=== PATIENT | male | born 1980 | race Caucasian/White ===

== ENCOUNTER 2017-04-28 20:48 | Emergency (ER) | payer OTHER ==
[~2017-04-28] VITALS: Ht 182.9 cm; Wt 129.9 kg
[~2017-04-28 20:48] MED LIST: ACET325T51 PO; ASPI-973 PO; CYCL10TA9 PO; HYDR-4003 PO; METO-369 PO; TAMS0.4C98 PO
[2017-04-28 20:54] VITALS: BP 180/98; PULSE 107; RESP 18; O2SAT 96
--- NOTE | 2017-04-28 23:35 | ED.REPORT ---
HPI-Abd Pain M Under 40 Date of Service Apr 28, 2017 ED Provider: Dr. Cronin Pt is a 36 year old male with a hx of HTN presenting to the ED complaining of midline abdominal pain which he has had for 4 years. Associated symptoms include urinary frequency, recent weight loss. He denies decreased appetite, constipation, bloody or tarry stool, dysuria, cough. He states that he is now homeless and sleeping in his car, and so he was unable to lay down which exacerbated the pain. He had an endoscopy and colonoscopy 1 year ago which showed IBS. Nursing Notes Stated Complaint: ABDOMINAL PAIN Chief Complaint: Male Abdominal Pain Nursing Notes Reviewed: Yes Scheduled Aspirin (Aspirin) 81 Mg Tablet 81 MG PO DAILY Metoprolol Succinate ER (Metoprolol Succinate ER) 50 Mg Tab.er.24h 150 MG PO BID Psyllium Husk (Psyllium) 0.4 Gram Capsule 1.6 GM PO DAILY Tamsulosin (Flomax) 0.4 Mg Capsule 0.4 MG PO BID Scheduled PRN Acetaminophen (Acetaminophen) 325 Mg Tablet 325 MG PO Q4H PRN PRN For Fever Cyclobenzaprine (Cyclobenzaprine) 10 Mg Tablet 10 MG PO TID PRN PRN Spasm Hydrocodone-Acetaminophen 5-325 mg (Hydrocodone-Acetaminophen 5-325 mg) 1 Each Tablet 1 TABLET PO Q4H PRN PRN For Pain General Time Seen by MD: 23:35 Chief Complaint Abdominal pain Hx Obtained From: Patient Arrived By: Walk-in Sudden in Onset?: No Onset Occurred: More than a week ago... (4 years ago) Symptom Duration: Since onset Location: : Diffuse Quality: Painful Severity: Current: Severe Severity: Maximum: Severe Recent Healthcare: No recent doctor visit, No recent hospitalization Similar Sx Previous: Yes Past Medical History Past Medical History Celiac disease episodic a fib HTN IBS Smoking History Current Every Day Smoker Social History Alcohol Use: Denies alcohol use Drug Use: Denies drug use Other Social History: Homeless Occupation lives alone. Ambulatory Status Independent Review of Systems Review of Systems Note: Denies decreased appetite Respiratory: Denies: Non-productive cough GI: Reports: Abdominal pain, Denies: Bloody/tarry stool, Constipation Male: Reports Urinary frequency, Denies Dysuria Complete sys rev & neg: except as marked. Endocrine: Reports: Weight loss Physical Exam Initial Vital Signs Vital Signs (First) Date Time Temp Pulse Resp B/P Pulse Ox O2 Delivery O2 Flow Rate FiO2 04/28/17 20:54 36.2 107 18 180/98 96 Room Air Initial VS: Reviewed Head / Eyes: Atraumatic, Normocephalic, PERRL ENT: Mucous membranes moist, Conjunctiva normal, No scleral icterus Extremities: Vascular intact, Neuro intact, No swelling, No tenderness Skin: Warm, Dry, No cyanosis Neurologic: Alert, Oriented, Nonfocal Psychiatric: Mood/affect normal, Behavior normal, Normal thought content General/Constitutional: Awake, Alert, No acute distress, Well appearing Respiratory / Chest: Breath sounds NL, Breath sounds = bilat, No respiratory distress, No rales, No rhonchi, No wheezing, No stridor Cardiovascular: Heart rate NL, Regular rhythm, Heart sounds NL, Peripheral circulation NL Abdomen: Atraumatic Mildly diffusely tender to palpation, obese Interpretation & Diagnostics Lab Results Interpretation Result Diagram: 04/29/17 0022 04/29/17 0022 Test 04/29/17 00:22 04/29/17 00:23 04/29/17 00:31 White Blood Count 8.5th/mm3 (3.8-10.1) Red Blood Count 5.12mil/mm3 (4.40-5.80) Hemoglobin 15.5g/dL (13.8-17.2) Hematocrit 44.6% (41.0-50.0) Mean Corpuscular Volume 87.1fL (81-100) Mean Corpuscular Hemoglobin 30.3pg (27.0-35.0) Mean Corpuscular Hemoglobin Concent 34.8% (32.0-37.0) Red Cell Distribution Width 14.0% (12.3-15.4) Platelet Count 215bil/L (150-400) Neutrophils (%) (Auto) 53.8% (40-74) Lymphocytes (%) (Auto) 30.8% (14-46) Monocytes (%) (Auto) 12.8% (4-12) Eosinophils (%) (Auto) 1.6% (0-5) Basophils (%) (Auto) 0.4% (0-3) Sodium Level 137mEq/L (134-144) Potassium Level 4.2mEq/L (3.5-5.2) Chloride Level 97mEq/L (97-108) Carbon Dioxide Level 23mmol/L (18-29) Blood Urea Nitrogen 18mg/dL (6-20) Creatinine 1.15mg/dL (0.76-1.27) Estimat Glomerular Filtration Rate 76mL/min (>59) Glucose Level 101mg/dL (60-99) Calcium Level 9.7mg/dL (8.5-10.1) Magnesium Level 2.1mg/dL (1.6-2.6) Total Bilirubin 0.4mg/dL (0.0-1.2) Aspartate Amino Transf (AST/SGOT) 22U/L (0-50) Alanine Aminotransferase (ALT/SGPT) 41U/L (0-44) Alkaline Phosphatase 93U/L (25-150) Total Protein 7.9g/dL (6.4-8.4) Albumin 4.6g/dL (3.4-5.0) Lipase 23U/L (13-60) Hold [place] Top Tube Received (Received) Urine Color Yellow (YELLOW) Urine Appearance Clear (CLEAR,HAZY) Urine pH 6.0 (5.0-8.0) Urine Specific [place] 1.025 (1.003-1.035) Urine Protein Negativemg/dL (NEG,TRACE) Urine Glucose (UA) Negativemg/dL (NEGATIVE) Urine Ketones Negativemg/dL (NEGATIVE) Urine Occult Blood Trace (NEGATIVE) Urine Nitrite Negative (NEGATIVE) Urine Bilirubin Negative (NEGATIVE) Urine Urobilinogen Normalmg/dL (NORMAL) Urine Leukocyte Esterase Negative (NEGATIVE) Urine RBC 0-2/hpf (0-2) Urine WBC 0-5/hpf (0-5) Urine Epithelial Cells Occasional/hpf (NONE-MOD) Urine Crystals None seen (NONE SEEN) Urine Bacteria None/hpf (NONE-FEW) Urine Hyaline Casts None/lpf (NONE) Urine Granular Casts None seen (NONE SEEN) Urine Waxy Casts None seen (NONE SEEN) Urine Red Blood Cell Casts None seen (NONE SEEN) Urine White Blood Cell Casts None seen (NONE SEEN) Urine Mucus Present (None Seen) Urine Trichomonas None seen (NONE SEEN) Urine Yeast None (NONE SEEN) Urinalysis Comment None Urine Culture Reflexed Not indicated CT Abd / Pelvis Interpretation No CT findings to explain the patient's clinical symptoms. This report was transmitted to the emergency room at 04/29/2017 - 1:56:16 AM PDT. Study type: Abdominal CT no contrast Interpretation / Wet Read by: Interpret - Radiologist Re-Eval/Medical Decision Med Decision/Clinical Course 36-year-old or prior diagnosis of ear trouble bowel syndrome, presents with worsening pain tonight. Situation is complicated by his recent homelessness and irregular diet. Lab exam is unremarkable and CT shows a fairly decompressed colon consistent with irritable bowel. Discussed all these findings with him in some detail. Fiber and exercise and fluid intake stressed. Discharged in stable condition. Re-Evaluation/Progress : Time of Eval: 02:26 Patient Status: Condition improved Re-Evaluation/Progress Note: Discussed CT results and plan for discharge. Pt understands and agrees with plan. Counseled Regarding: Diagnosis, Lab results, Need for follow-up, When/why to return to ED Patient Discharge & Departure Primary Impression: Generalized abdominal pain Additional Impression: Irritable bowel syndrome Irritable bowel syndrome type: without diarrhea Qualified Code: K58.9 - Irritable bowel syndrome without diarrhea Disposition: Home Discharge Condition All VS Reviewed: Yes Condition: Improved Patient Instructions: Irritable Bowel Syndrome (ED) Additional Instructions: We do not see any evidence of significant lesions in your abdomen to explain your pain. However, you have very little stool in your colon, very small bowel diameter, and therefore fairly high wall tension in the bowel. This can readily be a source of pain. You need to augment the fiber in your diet on a regular and ongoing basis. If you have a choice of food and adequate access, then adding cooked vegetables, cereals, fruits, and legumes such as lentils and beans, will all be helpful. However, it is often difficult to get enough fiber on a daily basis by diet alone. The alternative is to obtain generic Metamucil and begin with two capsules daily and increase to four capsules daily, with 12 ounces of fluid twice daily. Do this for the indefinite future. The additional help for irritable bowel is regular exercise, the increased fiber as above, and increase fluid intake. Referrals: Jermaine Britton MD (PCP) (Family) Scribe Attestation Portions of this note were transcribed by Dwight Montes. I, Dr. Cronin personally performed the history, physical exam and medical decision-making; I reviewed and confirmed the accuracy of the information in the transcribed note. Signed by: Rehan Alfaro, 04/28/2017. copies to: Jermaine Britton MD, Christopher W MD Apr 28, 2017 23:35 DWIGHT MONTES Apr 28, 2017 23:40
[2017-04-28] MEDS ORDERED: 0.9% Sodium Chloride 1,000 ML IV ONE (23:50)
[2017-04-29 00:29] LABS: BASOPHILS % (AUTO) 0.4 % (0-3); EOSINOPHILS % (AUTO) 1.6 % (0-5); MONOCYTES % (AUTO) 12.8 % (4-12); Mean Corpuscular Hemoglobin 30.3 pg (27.0-35.0); Mean Corpuscular Volume 87.1 fL (81-100); NEUTROPHILS % (AUTO) 53.8 % (40-74); Platelet Count 215 bil/L (150-400)
[2017-04-29 00:45] LABS: APPEARANCE,URINE CLEAR (CLEAR,HAZY); COLOR,URINE YELLOW (YELLOW); OCCULT BLOOD,URINE TRACE (NEGATIVE); UROBILINOGEN,URINE NORMAL (NORMAL)
[2017-04-29 00:59] LABS: Magnesium 2.1 mg/dL (1.6-2.6)
[2017-04-29 02:06] VITALS: BP 123/77; PULSE 75; RESP 16; O2SAT 97
[2017-04-29] MEDS ORDERED: PSYL0.4C PO (02:20)
[2017-04-29 02:48] VITALS: BP 123/77; PULSE 75; RESP 16; O2SAT 97
--- NOTE | 2017-04-29 11:06 | DRSVH ---
PROCEDURE: CT ABDOMEN AND PELVIS WITH CONTRAST ([id number]) INDICATIONS: abdo pain chronic and acute TECHNIQUE: After the administration of intravenous contrast, 5 mm thick sections acquired from the diaphragm to the symphysis. 5 mm coronal and sagittal reformats were acquired. For radiation dose reduction, the following was used: automated exposure control, adjustment of mA and/or kV according to patient siz e. COMPARISON: None. FINDINGS: Image quality: Excellent. ABDOMEN: Lung bases: Lung bases are clear. Heart size is normal. Small hiatal hernia. Solid organs: There is diffuse hepatic fatty infiltration. Liver and spleen are normal in size and e nhancement. There is a 1.4 cm hypodense nodule in the medial segment of the left hepatic lobe. Gallb ladder is contracted. Biliary system is non dilated. Pancreas enhances normally. No adrenal nodule s. Kidneys demonstrate normal size and enhancement, without hydronephrosis. Peritoneum and bowel: Appendix is normal. Bowel loops demonstrate normal wall thickness and caliber. No free fluid or air. Nodes and vessels: No retroperitoneal or mesenteric adenopathy by size criteria. Aorta and inferior vena cava are normal in size. Miscellaneous: No ventral hernias. PELVIS: Genitourinary: Bladder wall thickness is normal. Miscellaneous: No inguinal hernias or adenopathy. Bones: No suspicious bony lesions. No vertebral body compression fractures. IMPRESSION: 1. No acute intra-abdominal/pelvic process. 2. Hepatic steatosis. 3. A 1.4 cm indeterminate low-density nodule in the left hepatic lobe. Dictated by: Jesse Mckeon M.D. on 04/29/2017 at 11:02 Approved by: Jesse Mckeon M.D. on 04/29/2017 at 11:05
== END 2017-04-29 02:48 | disposition home or self-care (01) ==
LOC: SED 20:48
DX: K58.9 Irritable bowel syndrome, unspecified (principal); F17.200 Nicotine dependence, unspecified, uncomplicated; I10 Essential (primary) hypertension; I48.91 Unspecified atrial fibrillation; Z87.19 Personal history of other diseases of the digestive system; Z59.0 Homelessness; Z79.82 Long term (current) use of aspirin
CPT/HCPCS: 36415; 74177; 80053; 81000; 83690; 83735; 85025; 96361; 96374; 99285; J1885; J7030; Q9967

== ENCOUNTER 2017-04-30 19:53 | Emergency (ER) | payer OTHER ==
[~2017-04-30] VITALS: Ht 182.9 cm; Wt 84.5 kg
[~2017-04-30 19:53] MED LIST changes: +METO-272 PO; -METO-369 PO; +PSYL0.4C PO
[2017-04-30 20:03] VITALS: BP 191/98; PULSE 127; RESP 20; O2SAT 98
--- NOTE | 2017-04-30 20:04 | ED.REPORT ---
HPI-General Illness Date of Service Apr 30, 2017 ED Provider: Jerad Rojas MD Pt is a 36 y/o male with a history of hypertension who presents to the ED c/o high blood pressure onset earlier today. He thinks he was overprescribed blood pressure medicine, and has seen blood pressures of 160/93 and 193/101 today. He wishes to get his medication under control so that he can go back to work. Additional symptoms include chronic fatigue, diaphoresis, lower leg throbbing, anxiety, and headache. He denies fever, cough, SOB, or focal weakness. He takes 300 mg daily metoprolol and 2-3 mg of losartan daily. He was seen in the ED on 04/29/17 for abdominal pain. Labs were reviewed from 04/29/17 were normal and not ordered this visit. Nursing Notes Stated Complaint: ELEVATED HEART RATE & BLOOD PRESSURE Chief Complaint: General Complaint Nursing Notes Reviewed: Yes Scheduled Aspirin (Aspirin) 81 Mg Tablet 81 MG PO DAILY Metoprolol Succinate ER (Metoprolol Succinate ER) 50 Mg Tab.er.24h 150 MG PO BID Psyllium Husk (Psyllium) 0.4 Gram Capsule 1.6 GM PO DAILY Tamsulosin (Flomax) 0.4 Mg Capsule 0.4 MG PO BID Scheduled PRN Acetaminophen (Acetaminophen) 325 Mg Tablet 325 MG PO Q4H PRN PRN For Fever Cyclobenzaprine (Cyclobenzaprine) 10 Mg Tablet 10 MG PO TID PRN PRN Spasm Hydrocodone-Acetaminophen 5-325 mg (Hydrocodone-Acetaminophen 5-325 mg) 1 Each Tablet 1 TABLET PO Q4H PRN PRN For Pain General Time Seen by MD: 20:03 Chief Complaint Other (High blood pressure) Hx Obtained From: Patient Arrived By: Walk-in Sudden in Onset?: Yes Onset Occurred: 5 - 8 hours ago Severity: Current: No pain currently Severity: Maximum: No pain Recent Healthcare: Recent hospitalization Similar Sx Previous: Yes Past Medical History Past Medical History Celiac disease one episode of a fib HTN IBS Nephrolithiasis Smoking History Light Tobacco Smoker Social History Alcohol Use: Denies alcohol use Drug Use: Denies drug use Other Social History: Homeless Occupation lives alone. Ambulatory Status Independent Review of Systems High Blood Pressure Lower leg throbbing Full Review of Systems Constitutional: Reports: Fatigue (chronic), Denies: Fever Respiratory: Denies: Non-productive cough, Prod cough, clear, Shortness of breath Skin: Reports Diaphoresis Neurologic: Reports: Headache, Denies: Focal weakness Psychiatric: Reports: Anxiety Complete sys rev & neg: except as marked. Physical Exam Vital Signs Vital Signs Date Time Temp Pulse Resp B/P Pulse Ox O2 Delivery O2 Flow Rate FiO2 04/30/17 20:59 37.7 85 155/103 97 Room Air 04/30/17 20:03 127 20 191/98 98 Room Air Initial VS: Reviewed Head / Eyes: Atraumatic, Normocephalic Neck: Supple, Non-tender Abdomen / GI: Soft, Non-tender Extremities: Vascular intact, Neuro intact, No swelling, No tenderness Skin: Warm, Dry, No cyanosis Neurologic: Alert, Oriented, Nonfocal Psychiatric: Mood/affect normal, Behavior normal, Normal thought content General/Constitutional: Awake, Alert, No acute distress Respiratory / Chest: Atraumatic, Breath sounds NL, Breath sounds = bilat, No respiratory distress Cardiovascular: Heart rate NL, Regular rhythm, Heart sounds NL Re-Eval/Medical Decision Source of Hx: Old records Counseled Regarding: Diagnosis, Lab results, Need for follow-up, When/why to return to ED Discharge & Departure Primary Impression: Severe hypertension Disposition: Home Discharge Condition All VS Reviewed: Yes Condition: Stable Patient Instructions: Hypertension (DC) Additional Instructions: Thank you for entrusting us with your care today. Your emergency department evaluation today including examination was reassuring. I think discontinuing the metoprolol for now is reasonable. Try taking only Losartan for your high blood pressure. Please stop smoking as it should improve your symptoms. Take a daily walk every day to try and lower your blood pressure. To take your blood pressure, sit down in a chair for five minutes in a comfortable position, and wait at least an hour or two since your last cigarette or from exercise. Please go to [facility] tomorrow to schedule an appointment for a recheck. Please return to the emergency department for any new or worsening conditions including any difficulty breathing, fevers, chest pain, lightheadedness, or weakness. Drink plenty of water and use Tylenol as needed for headache. Referrals: Jermaine Britton MD (PCP) [facility] Scribe Attestation Portions of this note were transcribed by Teresa Thompson. I, Dr. Rojas, personally performed the history, physical exam and medical decision-making; I reviewed and confirmed the accuracy of the information in the transcribed note. copies to: Jermaine Britton MD; [facility] Jerad Rojas MD Apr 30, 2017 20:04 Teresa Thompson Apr 30, 2017 20:12
[2017-04-30 20:59] VITALS: BP 155/103; PULSE 85; O2SAT 97
== END 2017-04-30 21:05 | disposition home or self-care (01) ==
LOC: SED 19:53
DX: I10 Essential (primary) hypertension (principal); R53.83 Other fatigue; F41.9 Anxiety disorder, unspecified; Z87.442 Personal history of urinary calculi; Z87.19 Personal history of other diseases of the digestive system; Z79.82 Long term (current) use of aspirin

== ENCOUNTER 2017-06-02 14:38 | Emergency (ER) | payer OTHER ==
[~2017-06-02] VITALS: Ht 182.9 cm; Wt 121.8 kg
[~2017-06-02 14:38] MED LIST changes: -METO-272 PO; +METO-369 PO
[2017-06-02 14:45] VITALS: BP 166/113; PULSE 107; RESP 18; O2SAT 98
--- NOTE | 2017-06-02 15:10 | ED.REPORT ---
HPI-General Illness Date of Service Jun 02, 2017 ED Provider: Mateo Guevara MD The pt is a 37 y/o male w/ a hx of HTN, A-fib, and celiac disease presenting to the ED c/o a headache onset 3 days ago. The pain is exacerbated when the pt coughs, blows his nose, or bends over, 4/10 severity, and described as a diffuse pressure. There has been no recent trauma to the head. Other symptoms include a productive cough w/ yellow and green mucus beginning two weeks ago, and chills. Denies fevers, nausea, vomiting, photophobia, changes in vision, weakness, difficulty speaking, dysphagia, sinus pressure, neck pain, or facial pain. The pt recently had an abscessed L tooth, pulled 5 days ago, and was put on Keflex, which ran out last night, and Vicodin. Nursing Notes Stated Complaint: HEAD PRESSURE Chief Complaint: Headache Nursing Notes Reviewed: Yes Allergies: Coded Allergies: Beta-Blockers (Beta-Adrenergic Bloc (Verified Adverse Reaction, Unknown, ) pt states cause paralysis ibuprofen (Verified Adverse Reaction, Unknown, 06/02/17) pt states "I don't react well" Scheduled Amoxicillin/Clav K 875-125 mg (Augmentin 875-125 mg) 1 Each Tablet 1 TABLET PO BID Aspirin (Aspirin) 81 Mg Tablet 81 MG PO DAILY Metoprolol Succinate ER (Metoprolol Succinate ER) 50 Mg Tab.er.24h 150 MG PO BID Psyllium Husk (Psyllium) 0.4 Gram Capsule 1.6 GM PO DAILY Tamsulosin (Flomax) 0.4 Mg Capsule 0.4 MG PO BID Scheduled PRN Acetaminophen (Acetaminophen) 325 Mg Tablet 325 MG PO Q4H PRN PRN For Fever Cyclobenzaprine (Cyclobenzaprine) 10 Mg Tablet 10 MG PO TID PRN PRN Spasm Hydrocodone-Acetaminophen 5-325 mg (Hydrocodone-Acetaminophen 5-325 mg) 1 Each Tablet 1 TABLET PO Q4H PRN PRN For Pain General Time Seen by MD: 15:06 Chief Complaint Headache Hx Obtained From: Patient Arrived By: Walk-in Sudden in Onset?: Yes Onset Occurred: 3 days ago Symptom Duration: Since onset Recent Healthcare: No recent hospitalization, Recent doctor visit Similar Sx Previous: Yes Past Medical History Past Medical History Celiac disease one episode of a fib HTN IBS Nephrolithiasis Past Surgical History None reported Smoking History Light Tobacco Smoker Social History Alcohol Use: Denies alcohol use Drug Use: Denies drug use Other Social History: Homeless Occupation lives alone. Ambulatory Status Independent Review of Systems Denies dysphagia or facial pain; Full Review of Systems Constitutional: Reports: Chills, Denies: Fever Eyes: Denies: Blurred bilateral, Photophobia, Visual loss bilateral Ears / Nose / Throat: Denies: Nasal congestion Respiratory: Reports: Prod cough, green, Prod cough, yellow GI: Denies: Nausea, Vomiting Musculoskeletal: Denies: Neck pain Neurologic: Reports: Headache, Denies: Slurred speech, Unable to speak, Weakness Complete sys rev & neg: except as marked. Physical Exam Vital Signs Vital Signs Date Time Temp Pulse Resp B/P Pulse Ox O2 Delivery O2 Flow Rate FiO2 06/02/17 16:51 35.2 91 16 142/98 98 Room Air 06/02/17 14:45 36.6 107 18 166/113 98 Initial VS: Reviewed General/Constitutional: Well-developed, Well-nourished Head / Eyes: Atraumatic, Normocephalic, PERRL Neck: Supple, Non-tender, Full range of motion Extremities: Vascular intact, Neuro intact, No swelling, No tenderness Skin: Warm, Dry, No cyanosis Psychiatric: Mood/affect normal, Behavior normal, Normal thought content ENT: Airway patent, Mucous membranes moist Cerumen impaction of L TM; Respiratory / Chest: Breath sounds = bilat Rales / Rhonchi: Positive: Rhonchi diffuse Cardiovascular: Regular rhythm, Heart sounds NL Heart Rate / Rhythm: Positive: Tachycardia Neurologic: Oriented X3, Speech NL, No motor deficits, No sensory deficits, CN II - XII intact Re-Eval/Medical Decision Med Decision/Clinical Course 37-year-old male with facial pain 2 weeks. Also reports congestion. Recent finished antibiotics for a dental infection. He has frontal sinus tenderness. Afebrile. He has no sign symptoms of meningitis. He has normal neurological exam no symptoms of stroke. We will treat for acute bacterial sinusitis with Augmentin. Follow up with primary doctor. Return precautions given. Source of Hx: Old records Counseled Regarding: Diagnosis, Need for follow-up, When/why to return to ED Discharge & Departure Primary Impression: Sinusitis Sinusitis location: frontal Chronicity: unspecified Qualified Code: J32.1 - Chronic frontal sinusitis Disposition: Home Discharge Condition All VS Reviewed: Yes Condition: Stable Patient Instructions: Sinusitis (ED) Additional Instructions: Thank for you entrusting us with your care today. Please take the Augmentin as prescribed and I suspect you will feel better in a few days. Please return to the emergency department if you experience any new or worsening symptoms. I hope you feel better soon. Referrals: Jermaine Britton MD (PCP) (Family) Scribe Attestation Portions of this note were transcribed by Kobe Acharya. I, Dr. Guevara personally performed the history, physical exam and medical decision-making; I reviewed and confirmed the accuracy of the information in the transcribed note. copies to: Jermaine Britton MD, Ben M MD Jun 02, 2017 15:09 Kobe Acharya Jun 02, 2017 15:13
[2017-06-02] MEDS ORDERED: AMOX-366 PO (16:02)
[2017-06-02 16:51] VITALS: BP 142/98; PULSE 91; RESP 16; O2SAT 98
== END 2017-06-02 16:53 | disposition home or self-care (01) ==
LOC: SED 14:38
DX: J32.9 Chronic sinusitis, unspecified (principal); I10 Essential (primary) hypertension; I48.91 Unspecified atrial fibrillation; Z79.82 Long term (current) use of aspirin; Z59.0 Homelessness; Z88.6 Allergy status to analgesic agent; Z88.8 Allergy status to other drugs, medicaments and biological substances